=== PATIENT | female | born 1990 | race Caucasian/White ===

== ENCOUNTER → 2017-10-08 10:21 | Outpatient (CLI) | payer OTHER | END | disposition home or self-care (01) | LOC: D.US 10:00 | DX: O26.892 Other specified pregnancy related conditions, second trimester (principal); Z3A.14 14 weeks gestation of pregnancy ==

== ENCOUNTER → 2018-10-08 15:07 | Outpatient (CLI) | payer MEDICAID | END | disposition home or self-care (01) | LOC: D.MRI 15:07 | DX: M54.5 Low back pain (principal) ==